=== PATIENT | male | born 1950 | race Caucasian/White ===

== ENCOUNTER → 2017-03-06 | Outpatient (CLI) | payer OTHER ==
--- NOTE | 2017-03-06 08:16 | RAD ---
EXAM: Left shoulder 3 views. HISTORY: Left shoulder pain and limited range of motion. COMPARISON: None. FINDINGS: Superior subluxation of the humeral head is consistent with rotator cuff arthropathy. There are mild marginal osteophytes along the glenoid. The glenohumeral joint space appears maintained. Acromioclavicular osteoarthritis is mild to moderate. An inferiorly directed clavicular spur measures 2 mm. There is mild lateral acromial downsloping. IMPRESSION: 1. Rotator cuff arthropathy consistent with a rotator cuff tear. 2. Mild glenohumeral osteoarthritis. 3. Mild/moderate acromioclavicular osteoarthritis with inferiorly directed spurring. Correlate for impingement.
== END | disposition home or self-care (01) ==
LOC: DXRADRC 07:51
PROVIDERS: ATTEND Physician Assistant Medical
DX: M75.102 Unspecified rotator cuff tear or rupture of left shoulder, not specified as traumatic (principal); M19.012 Primary osteoarthritis, left shoulder
CPT/HCPCS: 73030

== ENCOUNTER → 2017-09-08 | Outpatient (CLI) | payer OTHER ==
--- NOTE | 2017-09-08 11:40 | EKG ---
[address] [address] Test Date: 2017-09-08 Test Time: 11:31:13 Pat Name: ANA HEAD Department: Room: Gender: M Coordinator Of Evaluation: ISAI : [id number] Requested By: ROMI MCCORMACK Order Number: [id number] Reading MD: Measurements Intervals [place] Rate: 72 P: 38 IA: 178 QRS: 44 QRSD: 94 T: 82 QT: 346 QTc: 380 Interpretive Statements SINUS RHYTHM T ABNORMALITY IN HIGH LATERAL LEADS ABNORMAL ECG RI6.01 Unconfirmed report No previous ECG available for comparison
== END | disposition home or self-care (01) ==
LOC: EKG 10:53
PROVIDERS: ATTEND Anesthesiology
DX: Z01.818 Encounter for other preprocedural examination (principal); I10 Essential (primary) hypertension; R94.31 Abnormal electrocardiogram [ECG] [EKG]; Z87.891 Personal history of nicotine dependence
CPT/HCPCS: 93005

== ENCOUNTER → 2019-11-22 | Outpatient (CLI) | payer MEDICARE, OTHER ==
[~2019-11-22] MED LIST: IOHEXOL 240 MG/ML 50ML VIAL. ONE; IOHEXOL 300 MG/ML 75 ML VIAL. IV ONE
--- NOTE | 2019-11-22 12:18 | RAD ---
CT ABD PELV W/ORAL IV CONTRAST Indication: Constipation, back pain, prostate pain Technique: Postcontrast CT imaging was performed of the abdomen and pelvis, multiplanar reconstruction images submitted. Oral contrast was also given. One or more of the following individualized dose reduction techniques were utilized for this examination: 1. Automated exposure control 2. Adjustment of the mA and/or kV according to patient size 3. Use of iterative reconstruction technique. Comparison: None Findings: There is no significant abnormality of the limited visualized lung bases. There is probable hepatic steatosis. There is a small hypodense lesion of the right lobe of the liver image 25 series 2 about 0.9 cm maximal dimension difficult to accurately characterize although density measurements on coronal images suggest cyst about 13 Hounsfield units. There is no adrenal nodularity. There is a small accessory spleen. No focal abnormality is identified of the pancreas or spleen. Gallbladder is present without obvious intraluminal abnormality by CT. Both kidneys enhance, no hydronephrosis. Bowel is not significantly dilated. Normal appendix is visualized without adjacent inflammatory change, no significant inflammatory change about the bowel. Prostate gland is not considered significantly enlarged, measures about 4.5 cm transverse by 3.6 cm AP by 3.2 cm cc. There is minimal fat in the left inguinal canal, no bowel. There is variable retained stool in the colon. There is multilevel lumbar degenerative disc disease greatest L2-3, L3-4, L5-S1. There is facet degenerative change greater inferiorly of the lumbar spine. There is lumbar neural foramina compromise greatest bilaterally at L4-5 and L3-4, also neural foramina compromise of the visualized thoracic spine greatest bilaterally at T9-T10. There is scattered plaque of the caliber abdominal aorta. IMPRESSION: 1. There is no significant inflammatory change, no CT evidence of acute appendicitis. There is variable retained stool the colon. 2. There is likely hepatic steatosis. Small hypodense lesion of the right lobe liver is somewhat difficult characterize, may be a small cyst. 3. There is lumbar degenerative disc disease and facet degenerative change, also neural foramina compromise greatest bilaterally at L3-4 and L4-5. Electronically signed by: Oren Peña MD (11/22/2019 12:15 PM) [id number]
== END | disposition home or self-care (01) ==
LOC: CT 08:25
PROVIDERS: ATTEND Physician Assistant Medical
DX: I70.0 Atherosclerosis of aorta (principal); M51.37 Other intervertebral disc degeneration, lumbosacral region; K76.89 Other specified diseases of liver
CPT/HCPCS: 74177; Q9967